=== PATIENT | female | born 1995 | race African-American/Black ===

== ENCOUNTER 2018-11-06 18:09 | Emergency (ER) | payer OTHER, SELFPAY ==
[2018-11-06 18:37] LABS: Bilirubin Negative (Negative); Blood, Urine Negative (Negative); Glucose, Urine (Dipstick) Negative (Negative); Leukocyte Negative (Negative); Nitrite Negative (Negative); Protein, Urine (Dipstick) Trace mg/dL (Neg-Trace)
[2018-11-06 18:41] LABS: Clarity SL HAZY (Clear)
[2018-11-06] MEDS ORDERED: Ketorolac Tromethamine 30 MG/ML VIAL ONE (18:42)
[2018-11-06] MEDS ORDERED: Ondansetron ODT 4 MG TAB ONE (18:42)
[2018-11-06 18:56] LABS: Pregnancy Test - Urine (BHCG) POSITIVE (Negative); Pregu Control Background? CLEAR/WHITE (CLR/WHITE); Pregu Control Bar Appear? YES (CONTROL BAR)
== END 2018-11-06 19:45 | disposition short-term general hospital (02) ==
LOC: NAV ERS 18:09
DX: O21.0 Mild hyperemesis gravidarum (principal); O99.281 Endocrine, nutritional and metabolic diseases complicating pregnancy, first trimester; E03.9 Hypothyroidism, unspecified
CPT/HCPCS: 81003; 81025; 99284; J1885; Q0162